=== PATIENT | female | born 2000 ===

== ENCOUNTER 2020-06-21 21:05 | Emergency (ER) | payer SELFPAY ==
[2020-06-21 21:10] VITALS: BP 115/68; PULSE 114; RESP 18; TEMP 37.2; O2SAT 100
--- NOTE | 2020-06-21 22:13 | PC.NURSE ---
Patient stating, I feel much better, I think I'm going to go now. I will come back if it comes back. Patient has a friend [id number] her.
== END 2020-06-21 22:13 | disposition left against medical advice (07) ==
DX: R11.0 Nausea (principal)
CPT/HCPCS: 99199